=== PATIENT | male | born 1985 ===

== ENCOUNTER 2018-03-01 01:45 | Emergency (ER) | payer OTHER ==
[~2018-03-01] VITALS: Ht 180.3 cm; Wt 81.6 kg
[~2018-03-01 01:45] MED LIST: BICARSIM FORTE125 MG PO; LEVSIN/SL0.125 MG SL; ZANTAC300 MG PO
== END 2018-03-01 08:45 | disposition home or self-care (01) ==
LOC: ER 01:45
DX: K06.8 Other specified disorders of gingiva and edentulous alveolar ridge (principal)

== ENCOUNTER 2021-09-10 14:49 | Outpatient (CLI) | payer OTHER | END 2021-09-10 14:55 | disposition home or self-care (01) | LOC: RAD 14:49 | DX: J45.909 Unspecified asthma, uncomplicated (principal); R07.9 Chest pain, unspecified ==